=== PATIENT | male | born 1950 | race Caucasian/White ===

== ENCOUNTER → 2023-09-08 15:34 | Outpatient (REF) | payer OTHER, SELFPAY | LOC: RAD 15:34 | PROVIDERS: ATTENDING PHYSICIAN Family Medicine | DX: M54.2 Cervicalgia (principal) | CPT/HCPCS: 72050 ==

== ENCOUNTER 2023-10-03 14:31 | Outpatient (RCR) | payer OTHER, SELFPAY | END 2023-10-03 23:59 | disposition home or self-care (01) | LOC: RPT 14:31 | PROVIDERS: ATTENDING PHYSICIAN Family Medicine | DX: M47.812 Spondylosis without myelopathy or radiculopathy, cervical region (principal); Z73.6 Limitation of activities due to disability | CPT/HCPCS: 97110; 97162 ==

== ENCOUNTER → 2023-10-25 08:54 | Outpatient (REF) | payer OTHER, SELFPAY ==
[2023-10-25 10:42] LABS: PSA, Total - Screen < 0.06 ng/ml (0.0-4.0)
[2023-10-27 00:58] LABS: % Free Testosterone 0.8 % (1.6-2.9); Free Testosterone 46 pg/mL (47-244); Sex Hormone Binding Globulin 121 nmol/L (19-76); Total Testosterone 607 ng/dL (300-720)
== END ==
LOC: REG 08:54
PROVIDERS: ATTENDING PHYSICIAN Family Medicine Geriatric Medicine; FAMILY PHYSICIAN Family Medicine
DX: C61 Malignant neoplasm of prostate (principal); Z79.818 Long term (current) use of other agents affecting estrogen receptors and estrogen levels; Z12.5 Encounter for screening for malignant neoplasm of prostate
CPT/HCPCS: 36415; 84270; 84402; 84403; G0103

== ENCOUNTER → 2024-04-30 09:20 | Outpatient (REF) | payer OTHER, SELFPAY ==
[2024-04-30 10:16] LABS: % Basophils 0.4 % (0-2); % Eosinophils 4.8 % (0-6); % Immature Granulocytes 0.6 % (0-0.5); % Monocytes 14.3 % (1.7-9.3); % Neutrophils 68.9 % (42.2-75.2); Absolute Eosinophils 0.2 10^3/uL (0-0.7); Absolute Lymphocytes 0.5 10^3/uL (1.2-3.4); Absolute Monocytes 0.7 10^3/uL (0.1-0.6); Absolute Neutrophils 3.2 10^3/uL (1.4-6.5); Hematocrit 41.7 % (39.0-52.0); Hemoglobin 13.9 g/dL (13.0-18.0); Mean Corp Hgb Conc. 33.3 g/dL (33.0-37.0); Mean Corpuscular Hgb 31.2 pg (27.0-31.0); Mean Corpuscular Volume 93.5 fL (80.0-94.0); Mean Platelet Volume 10.4 fL (7.4-10.4); Nucleated Red Blood Cells % 0 % (-); Platelet Count 178 10^3/uL (130-400); Red Blood Cell Count 4.46 10^6/uL (4.70-6.10); Red Cell Dist. Width 12.2 % (11.5-14.5); White Blood Cell Count 4.6 10^3/uL (4.8-10.8)
[2024-04-30 10:51] LABS: ALT (SGPT) 17 U/L (0-50); AST (SGOT) 24 U/L (17-59); Albumin 4.5 g/dl (3.5-5.0); Alkaline Phosphatase 91 U/L (38-126); Blood Urea Nitrogen 14 mg/dl (9-20); Calcium 9.4 mg/dl (8.4-10.2); Carbon Dioxide 32 mmol/L (22-30); Chloride 97 mmol/L (98-107); Glucose 89 mg/dl (70-99); HDL Cholesterol 68 mg/dl; Potassium 4.5 mmol/L (3.5-5.1); Sodium 138 mmol/L (135-145); Total Bilirubin 0.9 mg/dl (0.2-1.3); Total Cholesterol 115 mg/dl (50-199); Total Protein 6.8 g/dl (6.3-8.2); eGFR > 60.00
[2024-04-30 10:52] LABS: LDL Cholesterol, Calculated 41.00001 mg/dl; Triglyceride < 30 mg/dl (10-149); Very Low Density Lipoprotein 5.99999 mg/dl (0-30)
[2024-05-02 00:52] LABS: PSA, Ultrasensitive <0.01 ng/mL (0.00-4.00)
== END ==
LOC: REG 09:20
PROVIDERS: ATTENDING PHYSICIAN Urology; FAMILY PHYSICIAN Family Medicine
DX: E78.2 Mixed hyperlipidemia (principal); C61 Malignant neoplasm of prostate
CPT/HCPCS: 36415; 80053; 80061; 84153; 85025

== ENCOUNTER → 2024-11-06 11:07 | Outpatient (REF) | payer OTHER, SELFPAY ==
[2024-11-06 12:51] LABS: PSA, Total - Diagnostic < 0.06 ng/ml (0.0-4.0)
== END ==
LOC: REG 11:07
PROVIDERS: ATTENDING PHYSICIAN Family Medicine Geriatric Medicine; FAMILY PHYSICIAN Family Medicine
DX: C61 Malignant neoplasm of prostate (principal)
CPT/HCPCS: 36415; 84153